=== PATIENT | female | born 1970 | race African-American/Black ===

== ENCOUNTER 2016-10-11 08:43 | Inpatient (IN) | payer MEDICAID ==
[~2016-10-11] VITALS: Ht 172.7 cm; Wt 72.6 kg
[2016-10-11] MEDS ORDERED: Famotidine 20 MG/ 2ML VIAL IVP ONE (09:00)
[2016-10-11] MEDS ORDERED: HYDROmorphone 1mg/ml Carpuject IVP ONE ×2 (09:00→10:00)
[2016-10-11 09:15] LABS: APPEARANCE,URINE CLEAR; KETONES,URINE NEGATIVE (NEGATIVE); LEUKOCYTE ESTERASE ,URINE 1+ (NEGATIVE); NITRITE,URINE NEGATIVE (NEGATIVE); PH,URINE 6 (4.5-8.0); PROTEIN,URINE 2+ (NEGATIVE); UROBILINOGEN,URINE 1 MG/DL (0.0-1.0)
[2016-10-11 09:37] LABS: ALANINE AMINOTRANSFERASE 8 U/L (3-33); ALBUMIN/GLOBULIN RATIO 0.8 (1.0-2.7); ANION GAP 17 (5-15); ASPARTATE AMINO TRANSFERASE 15 U/L (5-40); CALCIUM 9.9 mg/dL (8.6-10.2); CARBON DIOXIDE 25 mEQ/L (20-30); CHLORIDE 98 mEQ/L (98-107); CREATININE 0.8 mg/dL (0.5-0.9); GLOMERULAR FILTRATION RATE > 60 mL/min (>60); HEMOLYSIS 17; LIPASE 56 U/L (< 60); POTASSIUM 4.5 mEQ/L (3.4-4.9); SODIUM 140 mEQ/L (135-145); TOTAL PROTEIN 8.8 g/dL (6.6-8.7)
[2016-10-11 09:44] LABS: BASOPHILS % (AUTO) 0.7 % (0.0-2.0); EOSINOPHILS % (AUTO) 0.1 % (0.0-3.0); LYMPHOCYTES % (AUTO) 14.4 % (20.0-45.0); MEAN CORPUSCULAR HEMOGLOBIN 28.7 PG (27.0-31.0); MEAN CORPUSCULAR HGB CONC 32.6 G/DL (32.0-36.0); MEAN CORPUSCULAR VOLUME 88 FL (80-99); MEAN PLATELET VOLUME 5.6 FL (6.5-10.1); MONOCYTES % (AUTO) 2.1 % (1.0-10.0); NEUTROPHILS % (AUTO) 82.7 % (45.0-75.0); PLATELET COUNT 619 K/UL (150-450); RED BLOOD COUNT 4.19 M/UL (4.20-5.40); RED CELL DISTRIBUTION WIDTH 15.1 % (11.6-14.8); WHITE BLOOD COUNT 9.6 K/UL (4.8-10.8)
[2016-10-11 09:51] LABS: BACTERIA,URINE FEW /HPF; SQUAMOUS EPITHELIAL CELL,UR MODERATE /LPF (NONE/OCC)
[2016-10-11 10:11] VITALS: BP 179/101
--- NOTE | 2016-10-11 10:24 | Emergency Room Report ---
History of Present Illness General Chief Complaint: Abdominal Pain Source: Patient, EMS Present Illness HPI 46-year-old female presents ED complaining of abdominal pain with vomiting. Patient states she recently diagnosed liver cancer. Was started on oral chemotherapy pill. States she is visiting from [facility]. Patient states that she feels nauseous and having 10 out of 10 epigastric pain. Sharp. Nonradiating. No other aggravating or relieving factors. As fevers chills. Denies chest pain or shortness of breath. Denies any other associated symptoms Allergies: Coded Allergies: MORPHINE (Verified Allergy, Unknown, 10/11/16) Patient History Past Medical History: HTN, other - liver cancer Past Surgical History: none Pertinent Family History: none Social History: Denies: alcohol use, drug use, smoking Last Menstrual Period: 09/26/16 Now: No Immunizations: UTD Reviewed Nursing Documentation: PMH: Agreed, PSxH: Agreed Nursing Documentation-PMH Past Medical History: No History, Except For Hx Hypertension: Yes Hx Cancer: Yes - liver, diagnosed Sep 2016 Review of Systems All Other Systems: negative except mentioned in HPI Physical Exam Vital Signs Date Time Temp Pulse Resp B/P Pulse Ox O2 Delivery O2 Flow Rate FiO2 10/11/16 08:40 97.7 52 17 179/101 100 Room Air Sp02 EP Interpretation: reviewed, normal General Appearance: alert, GCS 15, non-toxic, mild distress Head: normocephalic Eyes: bilateral eye PERRL, bilateral eye normal inspection ENT: normal ENT inspection Neck: normal inspection Respiratory: chest non-tender, lungs clear, normal breath sounds, speaking full sentences Cardiovascular #1: regular rate, rhythm, no edema Gastrointestinal: normal bowel sounds, soft, non-distended, no guarding, no rebound, tenderness - RUQ Rectal: deferred Genitourinary: no CVA tenderness Musculoskeletal: normal inspection Neurologic: alert, oriented x3, responsive, motor strength/tone normal, sensory intact, speech normal Psychiatric: normal inspection Skin: normal inspection Lymphatic: normal inspection Medical Decision Making Diagnostic Impression: Primary Impression: Gastritis Qualified Codes: K29.00 - Acute gastritis without bleeding Additional Impressions: Liver cancer Qualified Codes: C22.9 - Malignant neoplasm of liver, not specified as primary or secondary Intractable abdominal pain Vomiting Qualified Codes: R11.2 - Nausea with vomiting, unspecified ER Course Hospital Course 46-year-old female presents to ED with right upper quadrant pain, vomiting. History of liver cancer Differential diagnoses include: Liver cancer, ascites, small bowel obstruction, gastritis Clinical course Patient placed on stretcher. electronic device monitor. After initial history and physical I ordered labs, IV fluids, UA, pain medication and zofran Labs - no leukocytosis, Hb/Hct stable, electrolytes ok patient continues to have pain, requiring additional pain medication and Zofran for vomiting. CT abdomen and pelvis - liver mass, no other acute process. no obstruction because patient continues to require pain medication and medication for nausea I believe patient should be admitted Case discussed with Dr. Barrera and he agreed to accept the patient to his service for further care and support I feel this is a highly complex case requiring extensive working including EKG/ Rhythm strip, Xray/CT/US, Blood/urine lab work, repeat exams while in ED, and administration of strong opiates/narcotics for pain control, admission to hospital or close patient follow up. Diagnosis - gastritis, liver cancer, intracatble abd pain, vomiting Patient admitted to floor in serious condition Labs Test 10/11/16 08:45 White Blood Count 9.6 K/UL (4.8-10.8) Red Blood Count 4.19 M/UL (4.20-5.40) Hemoglobin 12.0 G/DL (12.0-16.0) Hematocrit 36.9 % (37.0-47.0) Mean Corpuscular Volume 88 FL (80-99) Mean Corpuscular Hemoglobin 28.7 PG (27.0-31.0) Mean Corpuscular Hemoglobin Concent 32.6 G/DL (32.0-36.0) Red Cell Distribution Width 15.1 % (11.6-14.8) Platelet Count 619 K/UL (150-450) Mean Platelet Volume 5.6 FL (6.5-10.1) Neutrophils (%) (Auto) 82.7 % (45.0-75.0) Lymphocytes (%) (Auto) 14.4 % (20.0-45.0) Monocytes (%) (Auto) 2.1 % (1.0-10.0) Eosinophils (%) (Auto) 0.1 % (0.0-3.0) Basophils (%) (Auto) 0.7 % (0.0-2.0) Urine Color Yellow Urine Appearance Clear Urine pH 6 (4.5-8.0) Urine Specific [place] 1.020 (1.005-1.035) Urine Protein 2+ (NEGATIVE) Urine Glucose (UA) Negative (NEGATIVE) Urine Ketones Negative (NEGATIVE) Urine Occult Blood 2+ (NEGATIVE) Urine Nitrite Negative (NEGATIVE) Urine Bilirubin Negative (NEGATIVE) Urine Urobilinogen 1 MG/DL (0.0-1.0) Urine Leukocyte Esterase 1+ (NEGATIVE) Urine RBC 5-10 /HPF (0 - 2) Urine WBC 2-4 /HPF (0 - 2) Urine Squamous Epithelial Cells Moderate /LPF (NONE/OCC) Urine Bacteria Few /HPF (NONE) Urine HCG, Qualitative Negative Sodium Level 140 mEQ/L (135-145) Potassium Level 4.5 mEQ/L (3.4-4.9) Chloride Level 98 mEQ/L (98-107) Carbon Dioxide Level 25 mEQ/L (20-30) Anion Gap 17 (5-15) Blood Urea Nitrogen 10 mg/dL (7-23) Creatinine 0.8 mg/dL (0.5-0.9) Estimat Glomerular Filtration Rate > 60 mL/min (>60) Glucose Level 182 mg/dL (74-106) Calcium Level 9.9 mg/dL (8.6-10.2) Total Bilirubin 0.2 mg/dL (0.0-1.2) Aspartate Amino Transf (AST/SGOT) 15 U/L (5-40) Alanine Aminotransferase (ALT/SGPT) 8 U/L (3-33) Alkaline Phosphatase 138 U/L (35-104) Total Protein 8.8 g/dL (6.6-8.7) Albumin 4.0 g/dL (3.5-5.2) Globulin 4.8 g/dL Albumin/Globulin Ratio 0.8 (1.0-2.7) Lipase 56 U/L (< 60) CT/MRI/US Diagnostic Results CT/MRI/US Diagnostic Results : Imaging Test Ordered: CT A/P Impression liver mass. no signs of obstruction. prior gastric surgery. Last Vital Signs Date Time Temp Pulse Resp B/P Pulse Ox O2 Delivery O2 Flow Rate FiO2 10/11/16 10:11 97.7 57 17 179/101 100 Room Air Status: unchanged Disposition: ADMITTED INPATIENT Condition: Serious Referrals: [id number],REFERRING (PCP) FRACISCO ESTES M.D. Oct 11, 2016 10:24
[2016-10-11] MEDS ORDERED: Pantoprazole Inj IVP ONE (11:15)
[2016-10-11] MEDS ORDERED: DiphenhydrAMINE 50mg/ml Inj IVP ONE (11:15)
[2016-10-11] MEDS ORDERED: HYDROmorphone 1 MG, DiphenhydrAMINE 25 MG in NS 55 ML IVPB ONE ×2 (12:00→15:15)
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
[2016-10-11] MEDS ORDERED: Metoclopramide 10mg/2ml Inj IVP ONE (15:15)
[2016-10-11] MEDS ORDERED: NORCO 5-325 TA1 EAC1 ORAL (15:30)
[2016-10-11] MEDS ORDERED: SOMA250 MG PO (15:30)
[2016-10-11] MEDS ORDERED: ASACOL HD800 MG ORAL (15:30)
[2016-10-11] MEDS ORDERED: DILAUDID8 MG PO (15:30)
[2016-10-11] MEDS ORDERED: LISINOPRIL5 MG ORAL (15:30)
[2016-10-11 16:24] VITALS: BP 163/78
[2016-10-11 16:45] VITALS: BP 146/98
[2016-10-11] MEDS ORDERED: Norco 10mg/325mg tab ORAL PRN (19:00)
[2016-10-11] MEDS: Lisinopril 20mg tab ORAL SCH (19:54)
[2016-10-11 20:00] VITALS: BP 162/83
--- NOTE | 2016-10-11 21:02 | General Progress Note ---
Assessment/Plan Assessment/Plan Assessment - Liver CA - Crohn's disease - HTN Recommendations - pain control - continue Asacol - Glevac for liver CA - check SBFT Subjective Allergies: Coded Allergies: MORPHINE (Verified Allergy, Unknown, 10/11/16) Objective Last 24 Hour Vital Signs Date Time Temp Pulse Resp B/P Pulse Ox O2 Delivery O2 Flow Rate FiO2 10/11/16 20:00 99.1 53 20 162/83 100 Room Air 10/11/16 19:54 146/98 10/11/16 16:45 98.2 61 18 146/98 100 Room Air 10/11/16 16:31 98.0 57 14 163/78 100 Room Air 57 10/11/16 16:24 98.0 57 14 163/78 100 Room Air 10/11/16 15:48 97.7 10/11/16 15:24 97.7 10/11/16 10:23 97.7 10/11/16 10:23 97.7 10/11/16 10:11 97.7 57 17 179/101 100 Room Air 10/11/16 08:40 97.7 52 17 179/101 100 Room Air Laboratory Tests 10/11/16 08:45: White Blood Count 9.6, Red Blood Count 4.19L, Hemoglobin 12.0, Hematocrit 36.9L , Mean Corpuscular Volume 88, Mean Corpuscular Hemoglobin 28.7, Mean Corpuscular Hemoglobin Concent 32.6, Red Cell Distribution Width 15.1H, Platelet Count 619H, Mean Platelet Volume 5.6L, Neutrophils (%) (Auto) 82.7H, Lymphocytes (%) (Auto) 14.4L, Monocytes (%) (Auto) 2.1, Eosinophils (%) (Auto) 0.1, Basophils (%) (Auto) 0.7, Urine Color Yellow, Urine Appearance Clear, Urine pH 6, Urine Specific [place] 1.020, Urine Protein 2+H, Urine Glucose (UA) Negative, Urine Ketones Negative, Urine Occult Blood 2+H, Urine Nitrite Negative , Urine Bilirubin Negative, Urine Urobilinogen 1H, Urine Leukocyte Esterase 1+H , Urine RBC 5-10H, Urine WBC 2-4, Urine Squamous Epithelial Cells ModerateH, Urine Bacteria Few, Urine HCG, Qualitative Negative, Sodium Level 140, Potassium Level 4.5, Chloride Level 98, Carbon Dioxide Level 25, Anion Gap 17H, Blood Urea Nitrogen 10, Creatinine 0.8, Estimat Glomerular Filtration Rate > 60 , Glucose Level 182H, Calcium Level 9.9, Total Bilirubin 0.2, Aspartate Amino Transf (AST/SGOT) 15, Alanine Aminotransferase (ALT/SGPT) 8, Alkaline Phosphatase 138H, Total Protein 8.8H, Albumin 4.0, Globulin 4.8, Albumin/ Globulin Ratio 0.8L, Lipase 56 Height (Feet): 5 Height (Inches): 8.00 Weight (Pounds): 160 RICARDAZIGGYKARENKASSIDY Oct 11, 2016 21:02
[2016-10-12] VITALS: BP 129/76
[2016-10-12 04:00] VITALS: BP 122/61
[2016-10-12 07:04] LABS: EOSINOPHILS % (AUTO) 0.6 % (0.0-3.0); LYMPHOCYTES % (AUTO) 37.5 % (20.0-45.0); MEAN CORPUSCULAR HGB CONC 33.3 G/DL (32.0-36.0); MEAN CORPUSCULAR VOLUME 87 FL (80-99); MONOCYTES % (AUTO) 6.5 % (1.0-10.0); NEUTROPHILS % (AUTO) 54.5 % (45.0-75.0); PLATELET COUNT 504 K/UL (150-450); RED BLOOD COUNT 3.28 M/UL (4.20-5.40); RED CELL DISTRIBUTION WIDTH 15.1 % (11.6-14.8); WHITE BLOOD COUNT 6.5 K/UL (4.8-10.8)
[2016-10-12 07:07] LABS: ALANINE AMINOTRANSFERASE 8 U/L (3-33); ALBUMIN/GLOBULIN RATIO 0.8 (1.0-2.7); ANION GAP 13 (5-15); ASPARTATE AMINO TRANSFERASE 14 U/L (5-40); CALCIUM 8.8 mg/dL (8.6-10.2); CARBON DIOXIDE 24 mEQ/L (20-30); CHLORIDE 101 mEQ/L (98-107); CREATININE 0.6 mg/dL (0.5-0.9); GLOMERULAR FILTRATION RATE > 60 mL/min (>60); HEMOLYSIS 1; POTASSIUM 3.6 mEQ/L (3.4-4.9); SODIUM 138 mEQ/L (135-145); TOTAL PROTEIN 6.8 g/dL (6.6-8.7)
--- NOTE | 2016-10-12 07:09 | Consultation ---
DATE OF CONSULTATION: 10/11/2016 HEMATOLOGY/ONCOLOGY CONSULTATION: CONSULTING PHYSICIAN: Luis Kaur M.D. REQUESTING PHYSICIAN: Milan Barrera M.D. REASON FOR CONSULTATION: IDENTIFICATION: Dear Dr. Milan Barrera, The patient is a pleasant 46-year-old female, who has been visiting from ____ [place]. She has a past medical history, which is significant for hypertension, recently diagnosed liver carcinoma and has been started on chemotherapy, that is by mouth. She has been visiting from . She states that she has been feeling nausea and vomiting as well as abdominal pain that is sharp, nonradiating. She presented to the hospital for further evaluation and treatment. She had a CAT scan completed that showed large liver mass with multiple metastatic sites . GI service was consulted for potential upper EGD. Hematology/Oncology service was consulted for further evaluation and treatment as well. PAST MEDICAL HISTORY: Liver mass, prior gastric surgery, and hypertension. PAST SURGICAL HISTORY: Gastric surgery. MEDICATIONS: Medications at home, oral chemotherapy, name at this time unknown. ALLERGIES: Morphine. SOCIAL HISTORY: No alcohol, tobacco, or illicit drug use. FAMILY HISTORY: Noncontributory. REVIEW OF SYSTEMS: Constitutional: No fever, chills, or night sweats. Skin: No rashes, lumps, or itching. HEENT: No headache, hearing or vision changes. Breasts: No lumps, pain, or discharge. Pulmonary: No cough, sputum, or shortness of breath. Cardiovascular: No chest pain, tightness, or palpitations. Gastrointestinal: The patient does have some nausea and does have vomiting and diarrhea noted. Genitourinary: No dysuria, frequency, or urgency. Musculoskeletal: No joint swelling, muscle pain, or trauma. Neurological: No dizziness, fainting, or seizures. PHYSICAL EXAMINATION: GENERAL: The patient is in no acute distress. VITAL SIGNS: Temperature 99.1 degrees Fahrenheit , pulse 63, respiratory rate 12, blood pressure 162/83, and pulse oximetry 100% on room air. PULMONARY: Decreased breath sounds. CARDIOVASCULAR: Regular rate and rhythm. No S3 or S4. ABDOMEN: Soft, nontender, and nondistended. EXTREMITIES: A 1+ edema. LABORATORY DATA: WBC 9.6, hemoglobin 12, hematocrit 37.7, and platelet count 219,000. BUN 10 and creatinine 3.8. ASSESSMENT: 1. Metastatic liver carcinoma concerning for hepatocellular carcinoma liver metastasis, likely related to the patient's abdominal pain. 2. Anemia secondary to chronic disease. 3. Prior gastric surgery, gastric resection and gastrojejunostomy. 4. Multiple liver lesions. 5. Abdominal pain. 6. Nausea and vomiting. 7. Crohn disease. 8. Hypertension. RECOMMENDATIONS: 1. Monitor counts. 2. Continue for liver carcinoma and/or GIST. 3. Hemoglobin goal above 7. 4. Continue Asacol for Crohn disease. 5. Pain control. 6. Follow up on GI recommendations. 7. Obtain ferritin. 8. The patient to undergo potential upper GI with small bowel follow-through. 9. Obtain alpha-fetoprotein. 10. Discussed with staff. 11. Consider use of heparin for DVT prophylaxis. Thank you, Dr. Milan Barrera, for this kind referral. Please do not hesitate to contact me if you have any further questions. Luis Kaur M.D. DR: Suzan JOB#: [id number] CC:
--- NOTE | 2016-10-12 08:02 | General Progress Note ---
Assessment/Plan Assessment/Plan Assessment - Liver CA - Crohn's disease - HTN - abd pain Recommendations - pain control - continue Asacol - Glevac for liver CA - check SBFT Subjective Allergies: Coded Allergies: MORPHINE (Verified Allergy, Unknown, 10/11/16) Subjective Feels OK uneventful night fo SBFT today Objective Last 24 Hour Vital Signs Date Time Temp Pulse Resp B/P Pulse Ox O2 Delivery O2 Flow Rate FiO2 10/12/16 04:00 98.1 53 16 122/61 100 Room Air 10/12/16 00:00 98.4 58 16 129/76 99 Room Air 10/11/16 20:00 99.1 53 20 162/83 100 Room Air 10/11/16 19:54 146/98 10/11/16 16:45 98.2 61 18 146/98 100 Room Air 10/11/16 16:31 98.0 57 14 163/78 100 Room Air 57 10/11/16 16:24 98.0 57 14 163/78 100 Room Air 10/11/16 15:48 97.7 10/11/16 15:24 97.7 10/11/16 10:23 97.7 10/11/16 10:23 97.7 10/11/16 10:11 97.7 57 17 179/101 100 Room Air 10/11/16 08:40 97.7 52 17 179/101 100 Room Air Intake and Output 10/11/16 10/12/16 19:00 07:00 Output Total 725 ml Balance -725 ml Output Urine Total 725 ml # Voids 1 2 # Bowel Movements 1 Laboratory Tests 10/11/16 08:45: White Blood Count 9.6, Red Blood Count 4.19L, Hemoglobin 12.0, Hematocrit 36.9L , Mean Corpuscular Volume 88, Mean Corpuscular Hemoglobin 28.7, Mean Corpuscular Hemoglobin Concent 32.6, Red Cell Distribution Width 15.1H, Platelet Count 619H, Mean Platelet Volume 5.6L, Neutrophils (%) (Auto) 82.7H, Lymphocytes (%) (Auto) 14.4L, Monocytes (%) (Auto) 2.1, Eosinophils (%) (Auto) 0.1, Basophils (%) (Auto) 0.7, Urine Color Yellow, Urine Appearance Clear, Urine pH 6, Urine Specific [place] 1.020, Urine Protein 2+H, Urine Glucose (UA) Negative, Urine Ketones Negative, Urine Occult Blood 2+H, Urine Nitrite Negative , Urine Bilirubin Negative, Urine Urobilinogen 1H, Urine Leukocyte Esterase 1+H , Urine RBC 5-10H, Urine WBC 2-4, Urine Squamous Epithelial Cells ModerateH, Urine Bacteria Few, Urine HCG, Qualitative Negative, Sodium Level 140, Potassium Level 4.5, Chloride Level 98, Carbon Dioxide Level 25, Anion Gap 17H, Blood Urea Nitrogen 10, Creatinine 0.8, Estimat Glomerular Filtration Rate > 60 , Glucose Level 182H, Calcium Level 9.9, Total Bilirubin 0.2, Aspartate Amino Transf (AST/SGOT) 15, Alanine Aminotransferase (ALT/SGPT) 8, Alkaline Phosphatase 138H, Total Protein 8.8H, Albumin 4.0, Globulin 4.8, Albumin/ Globulin Ratio 0.8L, Lipase 56 10/12/16 04:50: White Blood Count 6.5, Red Blood Count 3.28L, Hemoglobin 9.5L, Hematocrit 28.6L , Mean Corpuscular Volume 87, Mean Corpuscular Hemoglobin 29.0, Mean Corpuscular Hemoglobin Concent 33.3, Red Cell Distribution Width 15.1H, Platelet Count 504H, Mean Platelet Volume 6.0L, Neutrophils (%) (Auto) 54.5, Lymphocytes (%) (Auto) 37.5, Monocytes (%) (Auto) 6.5, Eosinophils (%) (Auto) 0.6, Basophils (%) (Auto) 1.0, Sodium Level 138, Potassium Level 3.6, Chloride Level 101, Carbon Dioxide Level 24, Anion Gap 13, Blood Urea Nitrogen 8, Creatinine 0.6, Estimat Glomerular Filtration Rate > 60, Glucose Level 98, Calcium Level 8.8, Total Bilirubin 0.2, Aspartate Amino Transf (AST/SGOT) 14, Alanine Aminotransferase (ALT/SGPT) 8, Alkaline Phosphatase 105H, Total Protein 6.8, Albumin 3.1L, Globulin 3.7, Albumin/Globulin Ratio 0.8L, Ferritin [Pending] , Alpha Fetoprotein [Pending] Height (Feet): 5 Height (Inches): 8.00 Weight (Pounds): 160 Objective WDWN AA woman NCAT supple CTA RR Soft ND no edema non focal KASSIDY DOTSON Oct 12, 2016 08:02
[2016-10-12 08:16] VITALS: BP 127/58
[2016-10-12] MEDS: Lisinopril 20mg tab ORAL SCH ×2 (08:27→20:19)
--- NOTE | 2016-10-12 08:57 | Consultation ---
History of Present Illness General Date patient seen: Oct 12, 2016 Chief Complaint: Abdominal Pain Present Illness Allergies: Coded Allergies: MORPHINE (Verified Allergy, Unknown, 10/11/16) Medication History Scheduled Carisoprodol (Soma), 250 MG PO Q6H, (Reported) Lisinopril (Lisinopril*), 5 MG ORAL DAILY, (Reported) Mesalamine (Asacol Hd), 1,600 MG ORAL THREE TIMES A DAY, (Reported) Scheduled PRN Hydrocodone Bit/Acetaminophen 5-325* ([place] 5-325 Tablet*), 1 TAB ORAL Q4H PRN for For Pain, (Reported) Miscellaneous Medications Hydromorphone Hcl (Dilaudid), 8 MG PO, (Reported) Patient History Healthcare decision maker Resuscitation status Advanced Directive on File Physical Exam Last 24 Hour Vital Signs Date Time Temp Pulse Resp B/P Pulse Ox O2 Delivery O2 Flow Rate FiO2 10/12/16 08:27 127/58 10/12/16 08:16 98.1 82 18 127/58 100 Room Air 10/12/16 04:00 98.1 53 16 122/61 100 Room Air 10/12/16 00:00 98.4 58 16 129/76 99 Room Air 10/11/16 20:00 99.1 53 20 162/83 100 Room Air 10/11/16 19:54 146/98 10/11/16 16:45 98.2 61 18 146/98 100 Room Air 10/11/16 16:31 98.0 57 14 163/78 100 Room Air 57 10/11/16 16:24 98.0 57 14 163/78 100 Room Air 10/11/16 15:48 97.7 10/11/16 15:24 97.7 10/11/16 10:23 97.7 10/11/16 10:23 97.7 10/11/16 10:11 97.7 57 17 179/101 100 Room Air Intake and Output 10/11/16 10/12/16 19:00 07:00 Output Total 725 ml Balance -725 ml Output Urine Total 725 ml # Voids 1 2 # Bowel Movements 1 Laboratory Tests Test 10/12/16 04:50 White Blood Count 6.5 K/UL (4.8-10.8) Red Blood Count 3.28 M/UL (4.20-5.40) L Hemoglobin 9.5 G/DL (12.0-16.0) L Hematocrit 28.6 % (37.0-47.0) L Mean Corpuscular Volume 87 FL (80-99) Mean Corpuscular Hemoglobin 29.0 PG (27.0-31.0) Mean Corpuscular Hemoglobin Concent 33.3 G/DL (32.0-36.0) Red Cell Distribution Width 15.1 % (11.6-14.8) H Platelet Count 504 K/UL (150-450) H Mean Platelet Volume 6.0 FL (6.5-10.1) L Neutrophils (%) (Auto) 54.5 % (45.0-75.0) Lymphocytes (%) (Auto) 37.5 % (20.0-45.0) Monocytes (%) (Auto) 6.5 % (1.0-10.0) Eosinophils (%) (Auto) 0.6 % (0.0-3.0) Basophils (%) (Auto) 1.0 % (0.0-2.0) Sodium Level 138 mEQ/L (135-145) Potassium Level 3.6 mEQ/L (3.4-4.9) Chloride Level 101 mEQ/L (98-107) Carbon Dioxide Level 24 mEQ/L (20-30) Anion Gap 13 (5-15) Blood Urea Nitrogen 8 mg/dL (7-23) Creatinine 0.6 mg/dL (0.5-0.9) Estimat Glomerular Filtration Rate > 60 mL/min (>60) Glucose Level 98 mg/dL (74-106) Calcium Level 8.8 mg/dL (8.6-10.2) Ferritin Pending Total Bilirubin 0.2 mg/dL (0.0-1.2) Aspartate Amino Transf (AST/SGOT) 14 U/L (5-40) Alanine Aminotransferase (ALT/SGPT) 8 U/L (3-33) Alkaline Phosphatase 105 U/L (35-104) H Total Protein 6.8 g/dL (6.6-8.7) Albumin 3.1 g/dL (3.5-5.2) L Globulin 3.7 g/dL Albumin/Globulin Ratio 0.8 (1.0-2.7) L Alpha Fetoprotein Pending Height (Feet): 5 Height (Inches): 8.00 Weight (Pounds): 160 Medications Current Medications Medications (Trade) Dose Ordered Sig/Harish Route PRN Reason Start Time Stop Time Status Last Admin Dose Admin Acetaminophen/ Hydrocodone Bitart ([place] 10/325) 1 ea Q4H PRN ORAL For Pain 10/11/16 19:00 10/18/16 18:59 10/11/16 19:14 Carisoprodol (Soma) 250 mg Q6HR ORAL 10/12/16 00:00 11/11/16 00:00 UNV Hydromorphone HCl (Dilaudid) 2 mg Q4H PRN IVP SEVERE PAIN UNRELIEVED BY [facility] 10/11/16 19:45 10/18/16 19:44 10/12/16 08:27 Lisinopril (Prinivil) 20 mg Q12HR ORAL 10/11/16 21:00 11/10/16 20:59 10/12/16 08:27 Mesalamine (Asacol) 1,600 mg THREE TIMES A DAY ORAL 10/12/16 09:00 11/11/16 08:59 Non-Formulary Medication (Non-Formulary Med) 1 ea DAILY ORAL 10/12/16 09:00 11/11/16 08:59 UNV Ondansetron HCl (Zofran) 4 mg Q6H PRN IVP Nausea & Vomiting 10/11/16 19:15 11/10/16 19:14 10/12/16 04:25 Assessment/Plan Assessment/Plan (1) Metastatic gastrointestinal stromal tumor (2) H/o Gastric surgery (3) Intractable Abdominal pain (4) Multiple liver lesions Seen Dictated LIVIA CARNES Oct 12, 2016 08:57
[2016-10-12 13:30] VITALS: BP 141/72
[2016-10-12] MEDS ORDERED: NS 55ml IV ONE (13:57)
[2016-10-12 14:00] LABS: FERRITIN 83 ng/mL (13-150)
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
[2016-10-12 16:06] VITALS: BP 142/78
--- NOTE | 2016-10-12 19:09 | General Progress Note ---
Assessment/Plan Assessment/Plan ASSESSMENT: 1. 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 Anemia secondary to chronic disease. rule out GI bleed 3. Prior gastric surgery, gastric resection and gastrojejunostomy. 4. Multiple liver lesions. 5. Abdominal pain. 6. Nausea and vomiting. 7. Crohn disease. 8. Hypertension. RECOMMENDATIONS: 1. Monitor counts. 2. Continue gleevec for GIST once cousin brings it in 3. Hemoglobin goal >7. 4. Continue Asacol for Crohn disease. 5. Pain control. 6. Follow up on GI recommendations. 7. Obtain iron panel 8. The patient to undergo potential upper GI w sbft 9. Obtain alpha-fetoprotein. 10. Discussed with staff. 11. DVT ppx scds Thank you, Luis Kaur MD Subjective Constitutional: Reports: no symptoms HEENT: Reports: no symptoms Cardiovascular: Reports: no symptoms Respiratory: Reports: cough Gastrointestinal/Abdominal: Reports: no symptoms Genitourinary: Reports: burning Neurologic/Psychiatric: Reports: no symptoms Endocrine: Reports: no symptoms Hematologic/Lymphatic: Reports: anemia Allergies: Coded Allergies: MORPHINE (Verified Allergy, Unknown, 10/11/16) Subjective stable, no fevers or chills, no bleeding noted Objective Last 24 Hour Vital Signs Date Time Temp Pulse Resp B/P Pulse Ox O2 Delivery O2 Flow Rate FiO2 10/12/16 16:06 98.2 60 18 142/78 99 Room Air 10/12/16 13:30 97.7 51 18 141/72 96 Room Air 10/12/16 08:27 127/58 10/12/16 08:16 98.1 82 18 127/58 100 Room Air 10/12/16 04:00 98.1 53 16 122/61 100 Room Air 10/12/16 00:00 98.4 58 16 129/76 99 Room Air 10/11/16 20:00 99.1 53 20 162/83 100 Room Air 10/11/16 19:54 146/98 Intake and Output 10/11/16 10/12/16 19:00 07:00 Output Total 725 ml Balance -725 ml Output Urine Total 725 ml # Voids 1 2 # Bowel Movements 1 Laboratory Tests 10/12/16 04:50: White Blood Count 6.5, Red Blood Count 3.28L, Hemoglobin 9.5L, Hematocrit 28.6L , Mean Corpuscular Volume 87, Mean Corpuscular Hemoglobin 29.0, Mean Corpuscular Hemoglobin Concent 33.3, Red Cell Distribution Width 15.1H, Platelet Count 504H, Mean Platelet Volume 6.0L, Neutrophils (%) (Auto) 54.5, Lymphocytes (%) (Auto) 37.5, Monocytes (%) (Auto) 6.5, Eosinophils (%) (Auto) 0.6, Basophils (%) (Auto) 1.0, Sodium Level 138, Potassium Level 3.6, Chloride Level 101, Carbon Dioxide Level 24, Anion Gap 13, Blood Urea Nitrogen 8, Creatinine 0.6, Estimat Glomerular Filtration Rate > 60, Glucose Level 98, Calcium Level 8.8, Ferritin 83, Total Bilirubin 0.2, Aspartate Amino Transf (AST /SGOT) 14, Alanine Aminotransferase (ALT/SGPT) 8, Alkaline Phosphatase 105H, Total Protein 6.8, Albumin 3.1L, Globulin 3.7, Albumin/Globulin Ratio 0.8L, Alpha Fetoprotein [Pending] Height (Feet): 5 Height (Inches): 8.00 Weight (Pounds): 160 General Appearance: no apparent distress EENT: TMs normal Neck: supple Cardiovascular: regular rhythm Respiratory/Chest: no respiratory distress Extremities: non-tender Edema: 1+ Leg (L), 1+ Leg (R) Edema: mild edema Neurologic: alert Skin: normal pigmentation Luis Kaur Oct 12, 2016 19:09
[2016-10-12 20:00] VITALS: BP 167/97
--- NOTE | 2016-10-12 23:57 | History and Physical Report ---
DATE OF ADMISSION: 10/11/2016 HISTORY OF PRESENT ILLNESS: The patient comes in with intractable abdominal pain and vomiting, has a history of liver cancer. CT of the abdomen and pelvis shows cancer, currently according to ER doctor, Dr. Nieves. The patient is admitted for intractable vomiting. The patient states that mostly the liver cancer recently, started on chemotherapy. She and was having abdominal pain as well. No chills. No fever. No shortness of breath. No chest pain. No rectal bleeding. PAST MEDICAL HISTORY: Significant for liver cancer and hypertension. Also, past medical history hypertension and chronic pain syndrome, possible colitis and also gastritis and liver cancer. MEDICATIONS: Soma, Dilaudid, lisinopril, and Asacol. ALLERGIES: Morphine. FAMILY HISTORY: Noncontributory. SOCIAL HISTORY: Denies alcohol abuse, illicit drugs or smoking. REVIEW OF SYSTEMS: HEENT: Denies headaches. Respiratory: Denies shortness of breath. No cough. Cardiovascular: Denies chest pain. Gastrointestinal: She has abdominal pain and vomiting intractably persistently since two days ago. Denies rectal bleeding. No diarrhea. Extremities: Denies pain. Central Nervous System: Denies change in vision or speech pattern. PHYSICAL EXAMINATION: VITAL SIGNS: Temperature is 99.1 degrees, pulse is 52, and blood pressure 162/83. HEENT: PERRLA. NECK: Supple. No lymphadenopathy. CHEST: Clear to auscultation. GASTROINTESTINAL: Soft. Epigastric tenderness. No rebound. EXTREMITIES: No edema. Reflexes on both sides. Moves all four extremities. LABORATORY AND DIAGNOSTIC DATA: White blood cell of 9.6, hemoglobin 12, and platelets of 619,000. Sodium 140, potassium 4.5, BUN of 10, creatinine 0.8 and glucose of 182. ASSESSMENT AND PLAN: 1. Intractable abdominal pain. 2. Vomiting. 3. Chronic pain syndrome. I have asked Dr. Barrera, Dr. Brennan, Dr. Kaur, Dr. Masesy and Dr. Cunningham see the patient for the above-mentioned diagnoses and treatment. Milan Barrera M.D. DR: VARUN JOB#: [id number] CC:
[2016-10-13] VITALS: BP 133/81
[2016-10-13 04:00] VITALS: BP 137/73
--- NOTE | 2016-10-13 04:08 | Consultation ---
DATE OF CONSULTATION: 10/12/2016 PAIN MANAGEMENT CONSULTATION CONSULTING PHYSICIAN: Catie Cunningham M.D. PHYSICIAN THERAPY TECHNICIAN: Shirley Nicholas REFERRING PHYSICIAN: Milan Barrera M.D. REASON FOR CONSULTATION: Abdominal pain. HISTORY OF PRESENT ILLNESS: The patient is a 46-year-old female, who is being seen on the Med/Surg floor of [facility] for initial comprehensive pain management consultation. The patient is reporting that she has been having abdominal pain for many years, however, has been severe over the past day. It is a constant chronic pain rating it as 10/10 describing as a stabbing pain and increased with movement. Nothing has been helping to relieve the pain. The patient has been taking [place] for the pain. She has a history of gastrointestinal stromal tumor surgery. However upon admission, she was having severe abdominal pain with nausea and vomiting. CT scans were done showing a liver lesion. At this time, the patient has been seen by oncologist. She was given [place] 10/325 one tablet every four hours for moderate pain and Dilaudid 2 mg IV every four hours as needed for severe. The patient's pain has been reduced with these current medications. He is comfortable at this time and has no complaints. PAST MEDICAL HISTORY: Liver disease, Crohn's disease, and hypertension. PAST SURGICAL HISTORY: gallbladder removal, and stromal tumor removal. ALLERGIES: Morphine and Percocet. SOCIAL HISTORY: She is a smoker. She denies alcohol and IV drug abuse. REVIEW OF SYSTEMS: Denies rash, fever, chills, sweating, dizziness, drowsiness, blurred vision, sore throat, or change in her weight. No shortness of breath or chest pain. No nausea, vomiting, diarrhea, or blood in the stool or urine at this time. No bowel or bladder incontinence. PHYSICAL EXAMINATION: GENERAL: Alert, awake, and oriented x3. VITAL SIGNS: Blood pressure is 122/58, heart rate saturation 100%, respirations 18, and temperature 98 degrees Fahrenheit. Height is 5 feet 8 inches and weight 160 pounds. HEENT: PERRLA. NECK: Range of motion is full in all directions. No tenderness of the paracervical muscles. No adenopathy. LUNGS: Clear. HEART: Regular. ABDOMEN: She has tenderness to palpation. BACK: Range of motion is decreased in flexion and extension with tenderness of the paracervical muscles. No tenderness in trapezius muscles and rhomboid muscles. EXTREMITIES: Upper extremity range of motion is full in all directions. Motor is intact. No cyanosis. No clubbing. No edema. Sensory is intact. Reflexes are not obtainable. No adenopathy. Lower extremity range of motion is full in all directions. Motor is intact. No cyanosis. No clubbing. No edema. Sensory is intact. Reflexes are not obtainable. No adenopathy. ASSESSMENT AND PLAN: This is a 46-year-old female with metastatic gastrointestinal stromal tumor, history of gastric surgery, multiple liver lesions, and intractable abdominal pain. The patient to be continued on the Dilaudid 2 mg intravenous every four hours as needed for severe pain and [place] 10/325 one tablet every four hours as needed for moderate pain. The patient is discussed with Octavio and Dr. Cunningham concurred. We will follow the patient. Catie Cunningham M.D. ALIRIO Nicholas DR: DOT JOB#: [id number] CC: CLEMENT
[2016-10-13 06:56] LABS: HEMOLYSIS 3; IRON 40 ug/dL (37-145); TOTAL IRON BINDING CAPACITY 226 ug/dL (250-400)
[2016-10-13 08:00] VITALS: BP 148/86
[2016-10-13] MEDS: Lisinopril 20mg tab ORAL SCH ×2 (09:12→19:59)
--- NOTE | 2016-10-13 09:49 | General Progress Note ---
Assessment/Plan Assessment/Plan (1) Metastatic gastrointestinal stromal tumor (2) H/o Gastric surgery (3) Intractable Abdominal pain (4) Multiple liver lesions The patient to be increased on the Dilaudid 2 mg intravenous every three hours as needed for severe pain and continued [place] 10/325 one tablet every four hours as needed for moderate pain. The patient is discussed with Octavio and Dr. Cunningham concurred. Subjective Date patient seen: Oct 13, 2016 Time patient seen: 07:30 - am Allergies: Coded Allergies: MORPHINE (Verified Allergy, Unknown, 10/11/16) Subjective REVIEW OF SYSTEMS: Denies rash, fever, chills, sweating, dizziness, drowsiness, blurred vision, sore throat, or change in her weight. No shortness of breath or chest pain. No nausea, vomiting, diarrhea, or blood in the stool or urine at this time. No bowel or bladder incontinence. SUBJECTIVE: Pain has been severe and the Dilaudid reduces the pain only for three hours and then the pain is unbearable. Objective Last 24 Hour Vital Signs Date Time Temp Pulse Resp B/P Pulse Ox O2 Delivery O2 Flow Rate FiO2 10/13/16 09:12 153/81 10/13/16 08:00 97.9 60 19 148/86 100 Room Air 10/13/16 04:00 98.4 65 18 137/73 96 Room Air 10/13/16 00:00 97.9 67 18 133/81 98 Room Air 10/12/16 20:19 142/78 10/12/16 20:00 98.4 65 18 167/97 99 Room Air 10/12/16 16:06 98.2 60 18 142/78 99 Room Air 10/12/16 13:30 97.7 51 18 141/72 96 Room Air Intake and Output 10/12/16 10/13/16 19:00 07:00 Intake Total 260 ml Balance 260 ml Intake Oral 260 ml # Voids 4 5 Laboratory Tests 10/13/16 05:25: Iron Level 40, Total Iron Binding Capacity 226L, Percent Iron Saturation 18, Unsaturated Iron Binding 186 Height (Feet): 5 Height (Inches): 8.00 Weight (Pounds): 160 Objective GENERAL: Alert, awake, and oriented x3. HEENT: PERRLA. NECK: Range of motion is full in all directions. No tenderness of the paracervical muscles. No adenopathy. LUNGS: Clear. HEART: Regular. ABDOMEN: She has tenderness to palpation. BACK: Range of motion is decreased in flexion and extension with tenderness of the paracervical muscles. No tenderness in trapezius muscles and rhomboid muscles. EXTREMITIES: No cyanosis. No clubbing. No edema. NEURO: No changes. LIVIA CARNES Oct 13, 2016 09:49
[2016-10-13 12:00] VITALS: BP 159/86
[2016-10-13 16:00] VITALS: BP 148/86
--- NOTE | 2016-10-13 16:56 | General Progress Note ---
Assessment/Plan Problem List: (1) Vomiting ICD Codes: R11.10 - Vomiting, unspecified SNOMED: 053903941, 661070327 Qualifiers: Qualified Codes: R11.2 - Nausea with vomiting, unspecified (2) Gastritis ICD Codes: K29.70 - Gastritis, unspecified, without bleeding SNOMED: 5960176 Qualifiers: Qualified Codes: K29.00 - Acute gastritis without bleeding (3) Liver cancer ICD Codes: C22.9 - Malignant neoplasm of liver, not specified as primary or secondary SNOMED: 61909229 Qualifiers: Qualified Codes: C22.9 - Malignant neoplasm of liver, not specified as primary or secondary (4) Intractable abdominal pain ICD Codes: R10.9 - Unspecified abdominal pain SNOMED: 86343994, 131950436 Status: progressing Assessment/Plan afebrile chronic pain on pain meds at home vomiting improving will discuss w gi re findings for her vomiting Subjective ROS Limited/Unobtainable: Yes Gastrointestinal/Abdominal: Reports: nausea Allergies: Coded Allergies: MORPHINE (Verified Allergy, Unknown, 10/11/16) Objective Last 24 Hour Vital Signs Date Time Temp Pulse Resp B/P Pulse Ox O2 Delivery O2 Flow Rate FiO2 10/13/16 16:00 97.9 62 18 148/86 98 Room Air 10/13/16 12:00 97.9 60 20 159/86 100 Room Air 10/13/16 09:12 153/81 10/13/16 08:00 97.9 60 19 148/86 100 Room Air 10/13/16 04:00 98.4 65 18 137/73 96 Room Air 10/13/16 00:00 97.9 67 18 133/81 98 Room Air 10/12/16 20:19 142/78 10/12/16 20:00 98.4 65 18 167/97 99 Room Air Intake and Output 10/12/16 10/13/16 19:00 07:00 Intake Total 260 ml Balance 260 ml Intake Oral 260 ml # Voids 4 5 Laboratory Tests 10/13/16 05:25: Iron Level 40, Total Iron Binding Capacity 226L, Percent Iron Saturation 18, Unsaturated Iron Binding 186 Height (Feet): 5 Height (Inches): 8.00 Weight (Pounds): 160 Cardiovascular: normal rate Respiratory/Chest: lungs clear, no respiratory distress Abdomen: soft Milan Barrera MD Oct 13, 2016 16:56
--- NOTE | 2016-10-13 21:05 | General Progress Note ---
Assessment/Plan Assessment/Plan ASSESSMENT: 1. 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 Anemia secondary to chronic disease. rule out GI bleed 3. Prior gastric surgery, gastric resection and gastrojejunostomy. 4. Multiple liver lesions. 5. Abdominal pain. 6. Nausea and vomiting. 7. Crohn disease. 8. Hypertension. RECOMMENDATIONS: 1. Monitor counts. 2. Continue gleevec for GIST once cousin brings it in 3. Hemoglobin goal >7. 4. Continue Asacol for Crohn disease. 5. Pain control. 6. Follow up on GI, ID recs. 7. Reviewed anemia w/u, does not need iron 8. The patient to undergo potential upper GI w sbft 9. Discussed with staff. 10. DVT ppx scds Thank you, Luis Kaur MD Subjective Constitutional: Reports: no symptoms HEENT: Reports: no symptoms Cardiovascular: Reports: no symptoms Respiratory: Reports: no symptoms Gastrointestinal/Abdominal: Reports: poor appetite Genitourinary: Reports: no symptoms Neurologic/Psychiatric: Reports: no symptoms Endocrine: Reports: no symptoms Hematologic/Lymphatic: Reports: anemia Allergies: Coded Allergies: MORPHINE (Verified Allergy, Unknown, 10/11/16) Subjective stable, no fevers or chills, no bleeding noted, is now anemic Objective Last 24 Hour Vital Signs Date Time Temp Pulse Resp B/P Pulse Ox O2 Delivery O2 Flow Rate FiO2 10/13/16 19:59 148/86 10/13/16 16:00 97.9 62 18 148/86 98 Room Air 10/13/16 12:00 97.9 60 20 159/86 100 Room Air 10/13/16 09:12 153/81 10/13/16 08:00 97.9 60 19 148/86 100 Room Air 10/13/16 04:00 98.4 65 18 137/73 96 Room Air 10/13/16 00:00 97.9 67 18 133/81 98 Room Air Intake and Output 10/12/16 10/13/16 19:00 07:00 Intake Total 260 ml Balance 260 ml Intake Oral 260 ml # Voids 4 5 Laboratory Tests 10/13/16 05:25: Iron Level 40, Total Iron Binding Capacity 226L, Percent Iron Saturation 18, Unsaturated Iron Binding 186 Height (Feet): 5 Height (Inches): 8.00 Weight (Pounds): 160 General Appearance: no apparent distress EENT: TMs normal Neck: supple Cardiovascular: regular rhythm Respiratory/Chest: normal breath sounds Abdomen: non tender Extremities: non-tender Edema: 1+ Leg (L), 1+ Leg (R) Edema: trace edema Neurologic: no motor/sensory deficits Luis Kaur Oct 13, 2016 21:05
--- NOTE | 2016-10-13 22:23 | General Progress Note ---
Assessment/Plan Assessment/Plan Assessment - GIST - Crohn's disease - HTN - abd pain Recommendations - pain control - continue Asacol - Glevac for GIST - check SBFT Subjective Neurologic/Psychiatric: Denies: numbness Allergies: Coded Allergies: MORPHINE (Verified Allergy, Unknown, 10/11/16) Subjective Feels OK uneventful night SBFT negative Objective Last 24 Hour Vital Signs Date Time Temp Pulse Resp B/P Pulse Ox O2 Delivery O2 Flow Rate FiO2 10/13/16 19:59 148/86 10/13/16 16:00 97.9 62 18 148/86 98 Room Air 10/13/16 12:00 97.9 60 20 159/86 100 Room Air 10/13/16 09:12 153/81 10/13/16 08:00 97.9 60 19 148/86 100 Room Air 10/13/16 04:00 98.4 65 18 137/73 96 Room Air 10/13/16 00:00 97.9 67 18 133/81 98 Room Air Intake and Output 10/12/16 10/13/16 19:00 07:00 Intake Total 260 ml Balance 260 ml Intake Oral 260 ml # Voids 4 5 Laboratory Tests 10/13/16 05:25: Iron Level 40, Total Iron Binding Capacity 226L, Percent Iron Saturation 18, Unsaturated Iron Binding 186 Height (Feet): 5 Height (Inches): 8.00 Weight (Pounds): 160 Objective WDWN AA woman NCAT supple CTA RR Soft ND no edema non focal KASSIDY DOTSON Oct 13, 2016 22:23
[2016-10-14] VITALS: BP 147/78
[2016-10-14 04:00] VITALS: BP 142/73
[2016-10-14 08:12] VITALS: BP 143/76
[2016-10-14] MEDS: Lisinopril 20mg tab ORAL SCH (08:42)
--- NOTE | 2016-10-14 10:29 | General Progress Note ---
Assessment/Plan Assessment/Plan (1) Metastatic gastrointestinal stromal tumor (2) H/o Gastric surgery (3) Intractable Abdominal pain (4) Multiple liver lesions The patient to be continued on the Dilaudid and [place]. Dilaudid 2mg tabs 15 tabs was written in anticipation for discharge. She was advised to f/u with PMD and Oncologist as Outpt. The patient is discussed with Octavio and Dr. Cunningham concurred. Subjective Date patient seen: Oct 14, 2016 Time patient seen: 10:00 - am Allergies: Coded Allergies: MORPHINE (Verified Allergy, Unknown, 10/11/16) Subjective REVIEW OF SYSTEMS: Denies rash, fever, chills, sweating, dizziness, drowsiness, blurred vision, sore throat, or change in her weight. No shortness of breath or chest pain. No nausea, vomiting, diarrhea, or blood in the stool or urine at this time. No bowel or bladder incontinence. SUBJECTIVE: She says that the pain has been better controlled on the changed interval of the Dilaudid. Reducing it from a 710->5/10. Pt would like to be discharged which she will d/w design editor. I d/w her about medications in anticipation for discharge. Objective Last 24 Hour Vital Signs Date Time Temp Pulse Resp B/P Pulse Ox O2 Delivery O2 Flow Rate FiO2 10/14/16 08:42 143/76 10/14/16 08:12 98.4 59 20 143/76 95 Room Air 10/14/16 04:00 96.8 59 18 142/73 97 Room Air 10/14/16 00:00 98.2 60 18 147/78 99 Room Air 10/13/16 19:59 148/86 10/13/16 16:00 97.9 62 18 148/86 98 Room Air 10/13/16 12:00 97.9 60 20 159/86 100 Room Air Intake and Output 10/13/16 10/14/16 19:00 07:00 Intake Total 700 ml 500 ml Output Total 4 ml Balance 700 ml 496 ml Intake Oral 700 ml 500 ml Output Urine Total 4 ml # Voids 6 Height (Feet): 5 Height (Inches): 8.00 Weight (Pounds): 160 Objective GENERAL: Alert, awake, and oriented x3. HEENT: PERRLA. NECK: Range of motion is full in all directions. No tenderness of the paracervical muscles. No adenopathy. LUNGS: Clear. HEART: Regular. ABDOMEN: She has tenderness to palpation. BACK: Range of motion is decreased in flexion and extension with tenderness of the paracervical muscles. No tenderness in trapezius muscles and rhomboid muscles. EXTREMITIES: No cyanosis. No clubbing. No edema. NEURO: No changes. LIVIA CARNES Oct 14, 2016 10:29
[2016-10-14 11:37] VITALS: BP 147/86
--- NOTE | 2016-10-14 13:30 | General Progress Note ---
Assessment/Plan Problem List: (1) Vomiting ICD Codes: R11.10 - Vomiting, unspecified SNOMED: 174649458, 356256745 Qualifiers: Qualified Codes: R11.2 - Nausea with vomiting, unspecified (2) Gastritis ICD Codes: K29.70 - Gastritis, unspecified, without bleeding SNOMED: 0328209 Qualifiers: Qualified Codes: K29.00 - Acute gastritis without bleeding (3) Liver cancer ICD Codes: C22.9 - Malignant neoplasm of liver, not specified as primary or secondary SNOMED: 69360143 Qualifiers: Qualified Codes: C22.9 - Malignant neoplasm of liver, not specified as primary or secondary (4) Intractable abdominal pain ICD Codes: R10.9 - Unspecified abdominal pain SNOMED: 48465500, 709479671 Status: progressing Assessment/Plan reviewed chart and labs afebrile diet per gi chronic pain on pain meds at home vomiting improving will discuss w gi re findings for her vomiting Subjective Gastrointestinal/Abdominal: Reports: abdominal pain, nausea Allergies: Coded Allergies: MORPHINE (Verified Allergy, Unknown, 10/11/16) Objective Last 24 Hour Vital Signs Date Time Temp Pulse Resp B/P Pulse Ox O2 Delivery O2 Flow Rate FiO2 10/14/16 11:37 99.2 56 20 147/86 99 Room Air 10/14/16 08:42 143/76 10/14/16 08:12 98.4 59 20 143/76 95 Room Air 10/14/16 04:00 96.8 59 18 142/73 97 Room Air 10/14/16 00:00 98.2 60 18 147/78 99 Room Air 10/13/16 19:59 148/86 10/13/16 16:00 97.9 62 18 148/86 98 Room Air Intake and Output 10/13/16 10/14/16 19:00 07:00 Intake Total 700 ml 500 ml Output Total 4 ml Balance 700 ml 496 ml Intake Oral 700 ml 500 ml Output Urine Total 4 ml # Voids 6 Height (Feet): 5 Height (Inches): 8.00 Weight (Pounds): 160 Cardiovascular: normal rate Respiratory/Chest: lungs clear Abdomen: soft Milan Barrera MD Oct 14, 2016 13:30
[2016-10-14] MEDS ORDERED: DILAUDID2 MG ORAL (14:24)
--- NOTE | 2016-10-14 15:36 | General Progress Note ---
Assessment/Plan Assessment/Plan ASSESSMENT: 1. 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 Anemia secondary to chronic disease. rule out GI bleed 3. Prior gastric surgery, gastric resection and gastrojejunostomy. 4. Multiple liver lesions. 5. Abdominal pain. 6. Nausea and vomiting. 7. Crohn disease. 8. Hypertension. RECOMMENDATIONS: 1. Monitor counts. 2. Continue gleevec for GIST once cousin brings it in 3. Hemoglobin goal >7. 4. Continue Asacol for Crohn disease. 5. Pain control. 6. Follow up on GI, ID recs. 7. Reviewed anemia w/u, does not need iron 8. The patient to undergo potential upper GI w sbft 9. Discussed with staff. 10. DVT ppx scds Thank you, Luis Kaur MD Subjective Constitutional: Reports: no symptoms HEENT: Reports: no symptoms Cardiovascular: Reports: no symptoms Respiratory: Reports: no symptoms Gastrointestinal/Abdominal: Reports: no symptoms Genitourinary: Reports: no symptoms Neurologic/Psychiatric: Reports: no symptoms Endocrine: Reports: no symptoms Hematologic/Lymphatic: Reports: anemia Allergies: Coded Allergies: MORPHINE (Verified Allergy, Unknown, 10/11/16) Subjective stable, no fevers or chills, no bleeding noted, pain is better controlled Objective Last 24 Hour Vital Signs Date Time Temp Pulse Resp B/P Pulse Ox O2 Delivery O2 Flow Rate FiO2 10/14/16 14:08 99.2 10/14/16 11:37 99.2 56 20 147/86 99 Room Air 10/14/16 08:42 143/76 10/14/16 08:12 98.4 59 20 143/76 95 Room Air 10/14/16 04:00 96.8 59 18 142/73 97 Room Air 10/14/16 00:00 98.2 60 18 147/78 99 Room Air 10/13/16 19:59 148/86 10/13/16 16:00 97.9 62 18 148/86 98 Room Air Intake and Output 10/13/16 10/14/16 19:00 07:00 Intake Total 700 ml 500 ml Output Total 4 ml Balance 700 ml 496 ml Intake Oral 700 ml 500 ml Output Urine Total 4 ml # Voids 6 Height (Feet): 5 Height (Inches): 8.00 Weight (Pounds): 160 General Appearance: alert EENT: normal ENT inspection Neck: supple Cardiovascular: regular rhythm Respiratory/Chest: normal breath sounds Abdomen: normal bowel sounds Extremities: normal range of motion Edema: 1+ Leg (L), 1+ Leg (R) Edema: mild edema Neurologic: alert Skin: warm/dry Luis Kaur Oct 14, 2016 15:36
--- NOTE | 2016-10-14 17:02 | General Progress Note ---
Assessment/Plan Assessment/Plan Assessment - GIST - Crohn's disease - HTN - abd pain Recommendations - pain control - continue Asacol - Glevac for GIST - d/c planning Subjective Allergies: Coded Allergies: MORPHINE (Verified Allergy, Unknown, 10/11/16) Subjective Feels OK uneventful night SBFT negative all d/w pt for dc today Objective Last 24 Hour Vital Signs Date Time Temp Pulse Resp B/P Pulse Ox O2 Delivery O2 Flow Rate FiO2 10/14/16 14:08 99.2 10/14/16 11:37 99.2 56 20 147/86 99 Room Air 10/14/16 08:42 143/76 10/14/16 08:12 98.4 59 20 143/76 95 Room Air 10/14/16 04:00 96.8 59 18 142/73 97 Room Air 10/14/16 00:00 98.2 60 18 147/78 99 Room Air 10/13/16 19:59 148/86 Intake and Output 10/13/16 10/14/16 19:00 07:00 Intake Total 700 ml 500 ml Output Total 4 ml Balance 700 ml 496 ml Intake Oral 700 ml 500 ml Output Urine Total 4 ml # Voids 6 Height (Feet): 5 Height (Inches): 8.00 Weight (Pounds): 160 Objective WDWN AA woman NCAT supple CTA RR Soft ND no edema non focal KASSIDY DOTSON Oct 14, 2016 17:02
--- NOTE | 2016-10-17 12:55 | Discharge Summary ---
Discharge Summary Hospital Course Date of Admission Oct 11, 2016 at 12:33 Date of Discharge Oct 14, 2016 at 14:55 Admitting Diagnosis INTRACTABLE ABD PAIN, VOMITING HPI Palma Perkins is a 46 year old female who was admitted on Oct 11, 2016 at 12: 33 for Intractable Abdominal Pain Vomiting Hospital Course dc summary dictated # [id number] Discharge Medications Continued Medications: Carisoprodol (Soma) 250 Mg Tablet 250 MG PO Q6H, TAB Hydrocodone Bit/Acetaminophen 5-325* (Vermillion 5-325 Tablet*) 1 Each Tablet 1 TAB ORAL Q4H PRN for For Pain, TAB Hydromorphone HCl (Dilaudid) 2 Mg Tablet 2 MG ORAL Q4H, #15 TAB 0 Refills Lisinopril (Lisinopril*) 5 Mg Tablet 5 MG ORAL DAILY, TAB Mesalamine (Asacol Hd) 800 Mg Tablet.dr 1600 MG ORAL THREE TIMES A DAY, TAB Do not break outer coating Discontinued Medications: Hydromorphone Hcl (Dilaudid) 8 Mg Tablet 8 MG PO, TAB Discharge Condition Upon Discharge: stable Discharge Disposition Patient was discharged to Home () Discharge Diagnoses: Norberto (Patrick)Makenzie NP Oct 17, 2016 12:55
--- NOTE | 2016-10-17 21:58 | Discharge Summary 2 SIG ---
DATE OF ADMISSION: 10/11/2016 DATE OF DISCHARGE: 10/14/2016 REASON FOR ADMISSION: 46-year-old female came to the emergency room complaining of intractable abdominal pain with nausea and vomiting. The patient recently diagnosed with liver cancer. She started on oral chemotherapy . She was visiting from [facility], but felt nauseous. Patient quantified her pain as 10/10 on a scale 1 to 10. Pain located in epigastric area, sharp, nonradiating. Denied fevers, chills. Denied chest pain , shortness of breath. In the emergency room, the patient was medicated for pain relief. Antiemetics provided as needed. IV fluids started. The patient had no leukocytosis, stable hemoglobin and hematocrit, electrolytes and LFT stable. CT of the abdomen and pelvis revealed liver mass, but no other acute process and no obstruction. The patient admitted to the hospital for further management. ADMITTING DIAGNOSES: 1. Liver cancer, recently diagnosed, on chemotherapy. 2. Possible gastritis. 3. Intractable abdominal pain with nausea and vomiting. 4. Crohn disease. HOSPITAL COURSE: The patient was admitted on the floor. Gastroenterology consult as well as microfilm operator/oncologist and pain specialist all were involved in the care of this patient and followed the patient closely. Per Gastroenterology, the patient undergone small bowel follow-through, which was negative for gastritis. 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 The family brought the mediation in the hospital to continue. The patient with underlying Crohn disease and history of gastric resection and gastrojejunostomy, started on Asacol for Crohn disease. Pain specialist optimized the regimen for pain control. Antiemetics provided as needed. Hemoglobin and hematocrit were closely monitored. Iron panel stable. Alphafetoprotein, liver enzymes and bilirubin were all stable. Urinalysis was negative. DVT prophylaxis provided. Abdominal pain was controlled, nausea and vomiting stopped, able to tolerate diet. The patient eventually was stable for discharge home and follow up with the oncologist for continuation of treatment. FINAL DIAGNOSES: 1. Gastrointestinal stromal tumor. 2. Anemia, secondary to chronic disease. 3. Intractable abdominal pain with nausea and vomiting - pain controlled, nausea and vomiting -resolved, 4. Crohn disease. 5. Hypertension. 6. History of gastric resection and gastrojejunostomy. DISCHARGE MEDICATIONS: See medication reconciliation list. DISCHARGE INSTRUCTIONS: The patient to follow up with the oncologist for further management of metastatic GIST tumor . Pain management as recommended by specialist. Continue Asacol for Crohn disease. Milan Barrera M.D. I have been assigned to dictate discharge summary on this account and I was not involved in the patient's management. Makenzie Thornton ([facility] N.PJhon DR: MARISSA JOB#: [id number] CC: CLEMENT
== END 2016-10-14 14:55 | disposition home or self-care (01) | DRG 694 ==
LOC: EDBD 08:43 → EMR 09:05 → 4W 12:33 → EDBEDREQ 13:02
DX: C79.89 Secondary malignant neoplasm of other specified sites (principal); C22.8 Malignant neoplasm of liver, primary, unspecified as to type; K50.90 Crohn's disease, unspecified, without complications; Z90.3 Acquired absence of stomach [part of]; I10 Essential (primary) hypertension; D63.8 Anemia in other chronic diseases classified elsewhere; Z79.899 Other long term (current) drug therapy; R11.2 Nausea with vomiting, unspecified; Z88.6 Allergy status to analgesic agent; F17.200 Nicotine dependence, unspecified, uncomplicated; G89.29 Other chronic pain; R10.9 Unspecified abdominal pain
CPT/HCPCS: 36415; 74177; 74249; 80053; 81003; 81025; 82105; 82728; 83540; 83550; 83690; 85025; J2405; J2765